=== PATIENT | male | born 1975 | race Caucasian/White ===

== ENCOUNTER 2017-11-27 11:05 | Inpatient (IN) | payer OTHER ==
--- NOTE | 2017-11-27 12:32 | SOAPPROG ---
SOAP Progress Note Assessment/Plan: Assessment: Bipolar disorder, current depression. Slight improvement noted (see subjective/ objective note). Patient is not safe to discharge at this time as patient exhibits signs of mood instability; currently depressed. Patient requires continued inpatient care because of current mood instability, and requires inpatient level of care to stabilize in order to no longer gravely disabled due to mental illness. Patient could benefit from continued inpatient hospitalization for crisis stabilization, safety, and medication evaluation. Plan: Review psychotropic medication treatment informed consent and recommendations. After reviewing options, risk and benefits, patient agrees to continue current medications with the following changes: Depakote ER 1,000 mg po QHS, Albuterol Inhaler. No other medication changes at this time as more time is needed to determine ongoing tolerability and efficacy. Plan is to continue to observe patient for response and side effects from medications, and ongoing monitoring and evaluation. Next steps are for patient to meet with dog day care attendant to plan a safe discharge plan and establish outpatient services for ongoing treatment. Consider discharge next week if patient is in stable condition, safe, and has a safe discharge plan. PSYCHOTROPIC MEDICATION TREATMENT INFORMED CONSENT and RECOMMENDATIONS: Review nature of condition, diagnosis, and prognosis. Review nature and purpose of psychotropic medication treatment. Review type of psychotropic medications being ordered. Review risk and benefits of psychotropic medication treatment. Review probable length of time patient will need to take medications. Review risk and benefits of not undergoing psychotropic medication treatment. Review alternative treatments to psychotropic medications. Review psychotropic medications contraindications, drug-drug interactions, side effects, and importance of reporting any side effects to a psychiatric provider or nurse during inpatient hospitalization, and upon discharge to patients psychiatric outpatient provider, primary care provider, or other health career consultant. Review importance of asking a nurse, psychiatric provider, or primary care provider any questions or problems concerning the psychotropic medications. Verify patient understands the information that has been provided, and understands, accepts, and agrees to psychotropic medications. Review patients safety plan and importance of patient to report to staff while hospitalized if patient is ever a danger to self/others, or unable to care for self, and upon discharge, the importance for patient to contact [facility] or [facility], or go to the nearest emergency room, if patient is ever a danger to self/others, or unable to care for self. Recommend that upon discharge patient establish medication management treatment with a psychiatric provider, establishes routine therapy appointments, and follow-up with primary care provider. Verify patient understands and agrees to these recommendations. 11/27/17 12:32 Subjective: Following up with patient for evaluation of psychosis and safety. Patient reports, "Feeling better today, I had walking pneumonia. Would like to get back to [place], [place]." Patient expresses the following psychiatric symptoms: none. Patient reports taking medications as prescribed, and describes response to medications as okay. Patient does not report undesirable side effects from the medications. Patient reports appetite as good, and reports eating all meals. Patient describes getting 8 hours of sleep. Patient requests Depakote for seizure disorder, and agrees to Depakote ER 1,000 mg po QHS. Patient agrees Depakote may also be beneficial for his mood. Patient requests inhaler for asthma. Objective: NURSING REPORT: Consulted with nursing for update on patients progress in treatment. Nurses report patient is engaged in treatment, is attending groups, slept 8 hours, expresses the following psychiatric symptoms: none, exhibits the following psychiatric symptoms: depressed; is eating all meals, is taking medications as prescribed with no report of side effects, with no s/s of EPS/ akathisia, and denies SI/HI, A/V hallucinations. The patient is male looking older than chronological age. Attire is appropriate and dress is casual. Grooming status is inappropriate and disheveled. Ambulation is independent. Gait is normal and coordinated. Posture is normal and relaxed. Eye contact is appropriate. Motor activity is appropriate with purposeful, organized, coordinated movements; with no involuntary movements. Attitude is cooperative. Patient appears more attentive today and relates well to this interviewer. Language production is spontaneous. Rate is hesitant. Latency of response is prolonged, with sad tone , and low volume. Articulation is mumbled. Patient reports mood as okay with constricted, flat, incongruent affect. Patients thought process is more linear and logical compared to last few days. Associations are connected. Patient does not report suicidal/homicidal thoughts, ideas, or plans. Patient denies auditory, visual hallucinations. Patient denies delusions. Patient does not appear to be attending to internal stimuli. Patients attention and concentration are poor. Patients insight is fair. Patients judgment is fair. Patient is oriented to person, place, time. - Time Spent With Patient Time Spent With Patient: 30 minutes, met with patient individually. - Pending Discharge Pending Discharge Within 24 Hours: No Pending Discharge Within 48 Hours: No ICD10 Worksheet Patient Problems: Problems Problem Status Onset Pneumonia Acute Chronic obstructive pulmonary disease with acute exacerbation Acute PTSD (post-traumatic stress disorder) Acute Bipolar disorder with severe depression Acute Altered mental status Acute
[2017-11-27] MEDS ORDERED: MAGNESIUM HYDROXIDE 30 ML UDCUP PO PRN (12:34)
[2017-11-27] MEDS ORDERED: MAG HYDROX/AL HYDROX/SIMETH 30 ML UDCUP PO PRN (12:34)
[2017-11-27] MEDS ORDERED: NICOTINE POLACRILEX 2 MG GUM B PRN (12:34)
[2017-11-27] MEDS ORDERED: predniSONE 20 MG TAB PO SCH (13:15)
[2017-11-27] MEDS: ALBUTEROL 60 PUFFS/8 GM MDI IH PRN ×2 (16:14→23:18)
[2017-11-27] MEDS: LURASIDONE HCL 20 MG TAB PO SCH (17:10)
[2017-11-27] MEDS: ACETAMINOPHEN 325 MG TAB PO PRN (18:40)
[2017-11-27] MEDS: AMOXICILLIN/CLAVULANATE POT 875/125 MG TAB PO SCH (21:23)
[2017-11-27] MEDS: DIVALPROEX ER 500 MG TAB PO SCH (21:24)
[2017-11-28] MEDS: IBUPROFEN 200 MG TAB PO PRN ×2 (01:00→23:15)
[2017-11-28] MEDS: ALBUTEROL 60 PUFFS/8 GM MDI IH PRN ×5 (05:30→22:02)
[2017-11-28] MEDS: ACETAMINOPHEN 325 MG TAB PO PRN ×2 (06:16→13:44)
[2017-11-28] MEDS: AMOXICILLIN/CLAVULANATE POT 875/125 MG TAB PO SCH ×2 (08:17→19:07)
[2017-11-28] MEDS: predniSONE 20 MG TAB PO SCH (08:17)
--- NOTE | 2017-11-28 08:17 | SOAPPROG ---
SOAP Progress Note Assessment/Plan: Assessment: Bipolar disorder, current depression. Slight improvement noted (see subjective/ objective note). Patient is not safe to discharge at this time as patient exhibits signs of mood instability; currently depressed. Patient requires continued inpatient care because of current mood instability, and requires inpatient level of care to stabilize in order to no longer gravely disabled due to mental illness. Patient could benefit from continued inpatient hospitalization for crisis stabilization, safety, and medication evaluation. Plan: Review psychotropic medication treatment informed consent and recommendations. After reviewing options, risk and benefits, patient agrees to continue current medications. No medication changes at this time as more time is needed to determine ongoing tolerability and efficacy. Plan is to continue to observe patient for response and side effects from medications, and ongoing monitoring and evaluation. Next steps are for patient to meet with home health care social worker to plan a safe discharge plan and establish outpatient services for ongoing treatment. Consider discharge if patient is in stable condition, safe, and has a safe discharge plan. PSYCHOTROPIC MEDICATION TREATMENT INFORMED CONSENT and RECOMMENDATIONS: Review nature of condition, diagnosis, and prognosis. Review nature and purpose of psychotropic medication treatment. Review type of psychotropic medications being ordered. Review risk and benefits of psychotropic medication treatment. Review probable length of time patient will need to take medications. Review risk and benefits of not undergoing psychotropic medication treatment. Review alternative treatments to psychotropic medications. Review psychotropic medications contraindications, drug-drug interactions, side effects, and importance of reporting any side effects to a psychiatric provider or nurse during inpatient hospitalization, and upon discharge to patients psychiatric outpatient provider, primary care provider, or other health healthcare corporate account director. Review importance of asking a nurse, psychiatric provider, or primary care provider any questions or problems concerning the psychotropic medications. Verify patient understands the information that has been provided, and understands, accepts, and agrees to psychotropic medications. Review patients safety plan and importance of patient to report to staff while hospitalized if patient is ever a danger to self/others, or unable to care for self, and upon discharge, the importance for patient to contact [facility] or [facility], or go to the nearest emergency room, if patient is ever a danger to self/others, or unable to care for self. Recommend that upon discharge patient establish medication management treatment with a psychiatric provider, establishes routine therapy appointments, and follow-up with primary care provider. Verify patient understands and agrees to these recommendations. 11/28/17 08:16 Subjective: Following up with patient for evaluation of psychosis and safety. Patient reports, "Continue to feel better, and still planning on getting back to [place], [place]." Patient expresses the following psychiatric symptoms: none. Patient reports taking medications as prescribed, and describes response to medications as okay. Patient does not report undesirable side effects from the medications. Patient reports appetite as good, and reports eating all meals. Patient describes getting 8 hours of sleep. Patient requests to continue current medications and requests resources for travel back to [place], [place]. Patient states his mother lives in the [place] area and he plans to return to visit her, and states he was visiting [place] from [place], [place]. Objective: Vital Signs Temp Pulse Resp BP Pulse Ox 36.3 C 76 16 105/57 L 95 11/28/17 00:00 11/28/17 05:32 11/28/17 05:32 11/28/17 05:32 11/28/17 05:32 NURSING REPORT: Consulted with nursing for update on patients progress in treatment. Nurses report patient is engaged in treatment, is attending groups, slept 8 hours, expresses the following psychiatric symptoms: none, exhibits the following psychiatric symptoms: depression; is eating all meals, is taking medications as prescribed with no report of side effects, with no s/s of EPS/ akathisia, and denies SI/HI, A/V hallucinations. The patient is male looking older than chronological age. Attire is appropriate and dress is casual. Grooming status is appropriate, clean shaven. Ambulation is independent. Gait is normal and coordinated. Posture is normal and relaxed. Eye contact is appropriate. Motor activity is appropriate with purposeful, organized, coordinated movements; with no involuntary movements. Attitude is cooperative. Patient appears attentive today and relates well to this interviewer. Speech R/R/V normal. Articulation is clear. Patient reports mood as okay with flat affect. Patients thought process is linear and logical. Associations are connected. Patient does not report suicidal/homicidal thoughts, ideas, or plans. Patient denies auditory, visual hallucinations. Patient denies delusions. Patient does not appear to be attending to internal stimuli. Patients attention and concentration are poor. Patients insight is fair. Patients judgment is fair. Patient is oriented to person, place, time, and situation. - Time Spent With Patient Time Spent With Patient: 15 minutes, met with patient individually. - Pending Discharge Pending Discharge Within 24 Hours: No Pending Discharge Within 48 Hours: No ICD10 Worksheet Patient Problems: Problems Problem Status Onset Altered mental status Acute Bipolar disorder with severe depression Acute Chronic obstructive pulmonary disease with acute exacerbation Acute PTSD (post-traumatic stress disorder) Acute Pneumonia Acute
--- NOTE | 2017-11-28 11:45 | ASMTBHMTP ---
Master Treatment Plan Master Treatment Plan Answers: Impaired Reality for: Date: 11/27/2017 Diagnosis on Admission: BiPolar Disorder with Severe Depression Expected length of stay: 3-5 days Reason for admission: Notes: Client was transfered back to from ICU, was on unit before see report Patient's stated presenting problems: Notes: "I doing ok, I took a shower" Patient's goals for treatment: Notes: "to get back on my medications and get better." Patient's strengths: Notes: none really Identify supports outside of hospital: Notes: noneq Discharge criteria: Notes: Psychotic symptoms will be reduced or eliminated with return to baseline functioning in affect, thinking and behavior prior to discharge.* Initial disposition plan/considerations: Notes: Go back to [place], and take better care of myself.* Master Treatment Plan Required Signatures Psychiatrist signature: Answers: Psychiatrist: RN on-shift signature: Answers: RN: Patient signature: Answers: Patient: Date Signed: 11/28/2017 11:45 AM Electronically Signed By:Aron Carrera
--- NOTE | 2017-11-28 16:05 | BAPA ---
[f rep st] ADMISSION PSYCHIATRIC ASSESSMENT DATE OF SERVICE: 11/27/2017 CC: "Feeling better after being at other hospital; had walking pneumonia." HISTORY OF PRESENT STAY: Patient re-admitted after a short stay at [facility] for medical treatment. The patient was discharged from inpatient [facility] on 11/26/2017, and was sent to the [facility] Emergency Room and was admitted. From Dr. Philip's progress note dated 11/25/2017, the patient had significant bilateral pedal edema. Dr. Philip requested a hospitalist to evaluate. The patient was seen for history and physical on 11/26/2017. The patient was sent from [address] [place] [address] to [facility] due to shortness of breath. Was sent to the ER by the [facility] team. At the ER, was found to have right-sided pneumonia and COPD exacerbation. The patient was admitted and started on IV antibiotics, IV fluids, and steroids. CXR showed a RML and RLL pneumonia. The patient was hypotensive and tachypnea when presented on admission at [facility]. Lactic acid was unremarkable. No leukocytosis. The patient reported shortness of breath since the morning of 11/26/2017. The patient reported feeling better since arriving to the ER. Antibiotic steroids started in the ER. No fluids provided. The patient was discharged from the ICU. The patient was on room air at time of discharge, reported feeling better. He was transitioned to Augmentin 875 mg b.i.d. x7 days and prednisone 40 mg daily x5 days. The patient received an echocardiogram which was unremarkable. The patient was discharged and sent back to [address] [place] [address] for continued inpatient psychiatric treatment. For previous History of Present Illness, please refer to the initial psychiatric assessment and history from 11/22/2017, and SOAP Progress notes as history was gathered from patient during previous stay, prior to being transferred to [facility]. PAST PSYCHIATRIC HISTORY: Refer to the initial psychiatric assessment and history from 11/22/2017, and SOAP Progress notes as history was gathered from patient during previous stay, prior to being transferred to [facility]. ALLERGIES: Refer to the initial psychiatric assessment and history from 2017, and SOAP Progress notes as history was gathered from patient during previous stay, prior to being transferred to [facility]. CURRENT MEDICATIONS: Albuterol 2 puffs IH q.4 hours p.r.n., Augmentin 875 mg p.o. b.i.d., Depakote ER 1000 mg p.o. h.s., Latuda 20 mg p.o. daily at 6 p.m, prednisone 40 mg p.o. daily. PAST MEDICAL HISTORY: Refer to the initial psychiatric assessment and history from 11/22/2017, and SOAP Progress notes as history was gathered from patient during previous stay, prior to being transferred to [facility]. SOCIAL HISTORY: Refer to the initial psychiatric assessment and history from , and SOAP Progress notes as history was gathered from patient during previous stay, prior to being transferred to [facility]. SUBSTANCE USE: Refer to the initial psychiatric assessment and history from , and SOAP Progress notes as history was gathered from patient during previous stay, prior to being transferred to [facility]. FAMILY PSYCHIATRIC HISTORY: Refer to the initial psychiatric assessment and history from 11/22/2017, and SOAP Progress notes as history was gathered from patient during previous stay, prior to being transferred to [facility]. ADMISSION LABS AND STUDIES: Refer to the initial psychiatric assessment and history from 11/22/2017, and SOAP Progress notes as history was gathered from patient during previous stay, prior to being transferred to [facility]. MENTAL STATUS EXAM: The patient is an undernourished male, looking older than chronological age. Attire is appropriate. Dress is casual, neat and clean. Grooming status is appropriate. Ambulation is independent. Gait is normal and coordinated. Posture is normal and relaxed. Eye contact is appropriate. Motor activity is appropriate with purposeful, organized, coordinated movements with no involuntary movements noted. Attitude is cooperative and friendly. The patient appears attentive and relates well to this interviewer. Language production is spontaneous. Rate, rhythm and volume are normal. Patient reports mood as "good." Affect is congruent with mood. The patient's thought process is linear and logical with no loose associations, tangential thought, thought blocking, concrete thinking, or any other signs of formal thought disorder. The patient does not report suicidal, homicidal thoughts, ideas, or plans. The patient denies auditory, visual hallucinations. The patient denies delusions. The patient does not appear to be attending to internal stimuli. The patient is oriented x3. The patient's attention and concentration are adequate. The patient's insight and judgment are fair. There is no evidence of gross cognitive dysfunction at any point during the interview and no evidence of apparent dysfunction in recent or remote memory noted. The patient does not report undesirable side effects from the medications. DIAGNOSIS: Bipolar 2 disorder, most recent episode depression. FORMULATION: This is a 42-year-old male single, unemployed, currently living homeless in [place], who presents to the hospital on a short-term certification after a short stay at [facility]. The patient requires continued inpatient care because of current mood instability and recent crisis that led to this hospitalization. The patient presents with problems of mood instability that have been steadily increasing over the past several weeks. The patient's life has been affected by these problems including a crisis that led to this hospitalization. The exacerbation of symptoms was preceded by the patient not eating or drinking for several days and that episode may likely be due to an underlying medical cause that led to the patient's admission at [facility] from [address]. The patient has a past psychiatric history of bipolar 2 disorder with depression. Based on the patient's history and current presentation, his diagnosis is bipolar II disorder with depression. The patient is a [id number] safety risk due to current mood instability. Protective factors while hospitalized include ongoing safety checks, active involvement in treatment, and support from our treatment team. The patient could benefit from inpatient hospitalization for safety, crisis stabilization, and medication evaluation. PLAN: (1) After reviewing risks and benefits and options, the patient agrees to continue current medications. (2) Labs: No additional labs at this time. (3) Therapy: milieu and group (4) Further investigation including gathering information from patients relatives and review of past case records (5) Continued evaluation and monitoring will be ongoing during the course of patients inpatient hospitalization to inform treatment, to determine if adjustments in medication regimen may benefit patients symptoms, and for discharge planning (6) Safety plan and follow-up outpatient appointments to be established prior to discharge (7) Confer with inpatient treatment team regarding initial treatment plan (8) Review informed consent and recommendations for psychotropic medication treatment listed below now, during the course of hospitalization, and during discharge interview ESTIMATED LENGTH OF STAY: 1-3 days PSYCHOTROPIC MEDICATION TREATMENT INFORMED CONSENT and RECOMMENDATIONS: Review nature of condition, diagnosis, and prognosis. Review nature and purpose of psychotropic medication treatment. Review type of psychotropic medications being ordered. Review risk and benefits of psychotropic medication treatment. Review probable length of time will need to take medications. Review risk and benefits of not undergoing psychotropic medication treatment. Review alternative treatments to psychotropic medications. Review psychotropic medications contraindications, drug-drug interactions, side effects, and importance of reporting any side effects to a psychiatric provider or nurse during inpatient hospitalization, and upon discharge to patients psychiatric outpatient provider, primary care provider, or other health career based intervention coordinator. Review importance of asking a nurse, psychiatric provider, or primary care provider any questions or problems concerning the psychotropic medications. Verify patient understands the information that has been provided, and understands, accepts, and agrees to psychotropic medications. Review patients safety plan and importance of patient to communicate to staff while hospitalized if patient is ever a danger to self/others, or unable to care for self, and upon discharge, the importance for patient to contact [facility] or [facility], or go to the nearest emergency room, if patient is ever a danger to self/others, or unable to care for self. Recommend that upon discharge patient establish medication management treatment with a psychiatric provider, establishes routine therapy appointments, and follow-up with primary care provider. Verify patient understands and agrees to these recommendations. /[id number]/MODL [id number]
[2017-11-28] MEDS: LURASIDONE HCL 20 MG TAB PO SCH (17:45)
[2017-11-28] MEDS: DIVALPROEX ER 500 MG TAB PO SCH (19:06)
[2017-11-29] MEDS: ALBUTEROL 60 PUFFS/8 GM MDI IH PRN ×2 (04:29→08:10)
[2017-11-29] MEDS: ACETAMINOPHEN 325 MG TAB PO PRN ×2 (04:30→10:54)
--- NOTE | 2017-11-29 07:59 | SOAPPROG ---
SOAP Progress Note Assessment/Plan: Assessment: Bipolar disorder, most recent depressed. Improvement noted (see subjective/ objective note). Patient is stable, ready to discharge when safe plan is in place. Plan: Review psychotropic medication treatment informed consent and recommendations. After reviewing options, risk and benefits, patient agrees to continue current medications. No medication changes at this time as more time is needed to determine ongoing tolerability and efficacy. Plan is to continue to observe patient for response and side effects from medications, and ongoing monitoring and evaluation. Next steps are for patient to meet with acute care physical therapist to plan a safe discharge plan and establish outpatient services for ongoing treatment. Consider discharge Monday or if patient is in stable condition, safe , and has a safe discharge plan. PSYCHOTROPIC MEDICATION TREATMENT INFORMED CONSENT and RECOMMENDATIONS: Review nature of condition, diagnosis, and prognosis. Review nature and purpose of psychotropic medication treatment. Review type of psychotropic medications being ordered. Review risk and benefits of psychotropic medication treatment. Review probable length of time patient will need to take medications. Review risk and benefits of not undergoing psychotropic medication treatment. Review alternative treatments to psychotropic medications. Review psychotropic medications contraindications, drug-drug interactions, side effects, and importance of reporting any side effects to a psychiatric provider or nurse during inpatient hospitalization, and upon discharge to patients psychiatric outpatient provider, primary care provider, or other health career guidance technician. Review importance of asking a nurse, psychiatric provider, or primary care provider any questions or problems concerning the psychotropic medications. Verify patient understands the information that has been provided, and understands, accepts, and agrees to psychotropic medications. Review patients safety plan and importance of patient to report to staff while hospitalized if patient is ever a danger to self/others, or unable to care for self, and upon discharge, the importance for patient to contact [place] [facility] or [facility], or go to the nearest emergency room, if patient is ever a danger to self/others, or unable to care for self. Recommend that upon discharge patient establish medication management treatment with a psychiatric provider, establishes routine therapy appointments, and follow-up with primary care provider. Verify patient understands and agrees to these recommendations. 11/29/17 07:59 Subjective: Following up with patient for evaluation of psychosis and safety. Patient reports, "Would like to discharge today as I have a lot of business to take care of, and plan to return to [place], [place]." Patient expresses the following psychiatric symptoms: none. Patient reports taking medications as prescribed, and describes response to medications as okay. Patient does not report undesirable side effects from the medications. Patient reports appetite as good , and reports eating all meals. Patient describes getting 8 hours of sleep. Patient requests to continue current medications and requests resources for travel back to [place], [place]. Objective: Vital Signs Temp Pulse Resp BP Pulse Ox 36.3 C 86 16 95/51 L 94 11/29/17 00:30 11/29/17 00:30 11/29/17 00:30 11/29/17 00:30 11/29/17 00:30 NURSING REPORT: Consulted with nursing for update on patients progress in treatment. Nurses report patient is engaged in treatment, is attending groups, slept 8 hours, expresses the following psychiatric symptoms: none, exhibits the following psychiatric symptoms: depression; is eating all meals, is taking medications as prescribed with no report of side effects, with no s/s of EPS/ akathisia, and denies SI/HI, A/V hallucinations. The patient presents casually dressed and with good hygiene, and looks stated age. Patient is sitting, posture is upright, and position is relaxed. Patient appears awake, alert, and responds appropriately and reasonably during interview. Patient is engaged, relates well to interviewer, and emotional facial expression is appropriate to situation and changes appropriately with topic. Patient is cooperative, makes comfortable eye contact, and movements are voluntary, deliberate, coordinated, and smooth and even with no inappropriate movements. Patient makes laryngeal sounds effortlessly and shares conversation appropriately; pace of conversation is appropriate, and stream of talking is fluent; articulation is clear and understandable; word choice is effortless and appropriate for education level; completes sentences, occasionally pausing to think; rate and volume are appropriate for interview and setting. Patient reports mood as euthymic. Patients affect is stable with full variable range, congruent with mood, and appropriate to speech and circumstances. Patient has linear and logical thinking, with no loose associations, tangential thought, thought blocking, concrete thinking, or any other signs of formal thought disorder. Patient denies suicidal and homicidal ideation, and denies hallucinations and delusions. Patient appears to be a reliable historian with sound judgement and good insight into current condition. Patient has no apparent dysfunction in recent or remote memory noted , and no evidence of gross cognitive dysfunction noted at any point during the interview. - Time Spent With Patient Time Spent With Patient: 15 minutes, met with patient individually. - Pending Discharge Pending Discharge Within 24 Hours: Yes Pending Discharge Within 48 Hours: No Pending Discharge Date: 11/30/17 Pending Discharge Time: 11:00 ICD10 Worksheet Patient Problems: Problems Problem Status Onset Altered mental status Acute Bipolar disorder with severe depression Acute Chronic obstructive pulmonary disease with acute exacerbation Acute PTSD (post-traumatic stress disorder) Acute Pneumonia Acute
[2017-11-29] MEDS: predniSONE 20 MG TAB PO SCH (08:00)
[2017-11-29] MEDS: AMOXICILLIN/CLAVULANATE POT 875/125 MG TAB PO SCH (08:01)
--- NOTE | 2017-11-29 08:59 | ASMTBHDC ---
Notes Note: Notes: CC confirmed with client and provider that he will be leaving today. CC called [facility] in [place] and provided all walk-in time/dates for client and contact information as well as provide the address to the local [facility]. See below: [facility] [address], [place] [address] Walk in Appts (time/date) Tuesdays & 9am thur 12pm & 1pm thru 4pm* Need to bring current list of medications Insurance information/card ID if you have it, Social Security Card (if you have it) Any medical records If you need this clinic to conncet with [facility], have then call or [facility] [address] [place] [address] Date Signed: 11/29/2017 08:58 AM Electronically Signed By:Aron Carrera
--- NOTE | 2017-11-29 10:09 | BDS ---
[f rep st] BEHAVIORAL HEALTH DISCHARGE SUMMARY REASON FOR ADMISSION: From the psychiatric assessment and history dated 2017. HISTORY OF PRESENT ILLNESS: From the ED note dated 11/20/2017, the patient arrived at the ED via [facility] on an M1 hold for grave disability. The patient was restless, pacing around in the room, and was nonverbal. The ED provider at that time was unable to obtain any history from the patient. From the [facility] evaluation dated 11/21/2017, the patient was placed on an M1 hold for grave disability. The patient was brought to the [facility] ED with unknown past psychiatric history from the [facility] on an M1 hold. The M1 hold stated the patient had not been sleeping, eating or drinking since his arrest on 11/18/2017. The patient was unresponsive to attempts to screen while at the skilled nursing. The patient was unable to communicate verbally and shouting and banging in his cell. The patient refused to wear clothing and was unable to test reality. The patient was admitted involuntarily on an M1 hold due to being gravely disabled. The patient was admitted for safety, crisis stabilization, and medication evaluation. ADMITTING DIAGNOSIS: Unspecified psychosis. ADMISSION PHYSICAL EXAM: Patient was seen for a physical exam on 11/22/2017, by Dr. Alfaro. Reason for referral for Internal Medical Medicine consultation was medical clearance for inpatient Behavioral Health stay. Dr. Alfaro reported he saw no medical contraindications to the patient's continued stay in the inpatient behavioral health unit or to any psychiatric medications or procedures. For further details, please refer to Dr. Alfaro's note dated 2017. ADMISSION LABS: CBC from 11/20 showed anemia with a hemoglobin of 12.4 and hematocrit of 38.8. Mean cellular hemoglobin content was low at 32, and red blood cell distribution width was high at 15.3. Otherwise, it was overall within normal limits. Serum chemistry was consistent with dehydration on 11/20 with a sodium of 148, a BUN of 28 and creatinine of 0.9. The patient had an elevated chloride at 112 and then 111 on 11/21. The patient's BUN decreased somewhat from 28 to 25 between 2 days ago and yesterday. Creatinine was normal at 0.9 and then 0.7. Hemoglobin A1c was 5.5. Liver functions revealed a low albumin at 2.9, otherwise were within normal limits. Vitamin B12 was normal at 492, and TSH was normal at 1.030. Urinalysis was positive for protein and ketones. Toxicology screen in the serum was negative for salicylates, acetaminophen, lithium, and ethyl alcohol, and in the urine was negative for any substances of abuse. MAJOR PROCEDURES OR TESTS: The patient was sent to [facility] on 11/26/[address] Philip's progress note dated 11/25/2017. The patient had significant bilateral pedal edema. Dr. Philip requested the hospitalist to evaluate. The patient was sent from [address] [place] [address] to [facility] due to shortness of breath on . At the ER, was found to have right-sided pneumonia and COPD exacerbation. The patient was admitted and started on IV antibiotics, IV fluids , and steroids. CXR showed an RML and RLL pneumonia. The patient was hypotensive and tachypneic when presented on admission at [facility]. Lactic acid was unremarkable. No leukocytosis. The patient reported shortness of breath since the morning of 11/26/2017. The patient reported feeling better since arriving to the ER. Antibiotic steroid started in the ER. No fluids provided. The patient was discharged from the ICU. The patient was on room air at the time of discharge, reported feeling better. He was transitioned to Augmentin 875 b.i.d. x7 days and prednisone 40 mg daily x5 days. The patient received an echocardiogram, which was unremarkable. The patient was discharged and sent back to [address] [place] [address] for continued inpatient psychiatric treatment. HOSPITAL COURSE: The most prominent symptoms and behaviors while the patient was here were disorganized thought process and disorganized behavior. Target symptoms: Psychosis and depression. Treatment modalities utilized were milieu and group therapy. Latuda 20 mg p.o. daily at 1800 was started to target depression symptoms, was tolerated with no report of side effects and with good response. Depakote ER 1000 mg p.o. q.h.s. was started to target mood symptoms and seizures, was tolerated with no report of side effects and with good response. The patient has improved considerably, with no signs of psychiatric symptoms and no psychiatric symptoms expressed at discharge. The patient reports he has improved since admission, states to be in stable condition, feels safe to discharge, and he contracts for safety. Patient's response to treatment was good. There were no adverse or unexpected results of treatment. The patient was safe throughout his stay, active in treatment, engaged in groups , and was appropriate with staff and other patients. The treatment team consensus is the patient is in stable condition and is safe to discharge today. CONDITION ON DISCHARGE: Patient is in stable condition and is no longer a danger to self or others, and is not gravely disabled due to mental illness. Patient is no longer in need of inpatient level of care, and can be safely and effectively treated within the community. The patients level of risk at time of discharge is low based on the risk assessment below following this discharge summary. MSE: The patient is casually dressed and with good hygiene, and looks stated age. Patient is sitting, posture is upright, and position is relaxed. Patient appears awake, alert, and responds appropriately and reasonably during interview. Patient is engaged, relates well to interviewer, and emotional facial expression is appropriate to situation and changes appropriately with topic. Patient is cooperative, makes comfortable eye contact, and movements are voluntary, deliberate, coordinated, and smooth and even with no inappropriate movements. Patient makes laryngeal sounds effortlessly and shares conversation appropriately; pace of conversation is appropriate, and stream of talking is fluent; articulation is clear and understandable; word choice is effortless and appropriate for education level; completes sentences, occasionally pausing to think; rate and volume are appropriate for interview and setting. Patient reports mood as euthymic. Patients affect is stable with full variable range, congruent with mood, and appropriate to speech and circumstances. Patient has linear and logical thinking, with no loose associations, tangential thought, thought blocking, concrete thinking, or any other signs of formal thought disorder. Patient denies suicidal and homicidal ideation, and denies hallucinations and delusions. Patient appears to be a reliable historian with sound judgement and good insight into current condition. Patient has no apparent dysfunction in recent or remote memory noted , and no evidence of gross cognitive dysfunction noted at any point during the interview. 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 daily for 3 days, Latuda 20 mg p.o. daily at 1800, Depakote ER 1000 mg p.o. q.h.s., Augmentin 875 mg p.o. b.i.d. for 5 days, albuterol 2 puffs inhale q.4 hours. Prescriptions were provided at the time of discharge. Prescriptions were reviewed carefully with the patient for accuracy and clarification. The patient reports he understands the prescriptions and how to appropriately take the medications. DISPOSITION: Patient left the hospital today independently and voluntarily and plans to return to [place], [place], where his family resides. FOLLOWUP: financial aid coordinator reports the appropriate outpatient follow-up services have been established and outpatient appointments have been scheduled. The patient received written instructions with times and dates of outpatient follow-up appointments. The following follow-up recommendations were provided to the patient at discharge: Continue psychotropic medications as prescribed and attend appointments as scheduled. Report any side effects to a psychiatric outpatient provider, a primary care provider, or other health vision care associate. Address any questions or problems concerning the psychotropic medications with a psychiatric outpatient provider, a primary care provider, or other health vision care associate. Contact [facility] or [facility], or go to the nearest emergency room, if you are ever a danger to yourself/others, or unable to care for yourself. As soon as possible, establish a routine medication management treatment with a psychiatric provider, establish routine therapy appointments, and follow-up with a primary care provider. LEGAL COURSE: The patient was admitted on an M1 hold for grave disability. The patient was placed on a short-term certification during hospitalization, was terminated today. Patient discharged today independently and voluntarily. ATTITUDE AT TIME OF DISCHARGE: The patients attitude was positive at time of discharge, and patient reports looking forward to discharging today. The patient reports he feels safe to discharge, is no longer a danger to himself or others, is in stable condition, and contracts for safety. Patient states he will continue medications as prescribed, and establish medication management treatment with an outpatient provider after discharge. Patient reports he understands the information that has been provided to him, and he understands, accepts, and agrees to psychotropic medications. Patient describes internal protective factors as the coping skills he has learned while hospitalized here, and he plans to continue to practice these coping skills after discharge. Patient reports external protective factors as family and future plans. Patient describes looking forward to returning to [place], [place] after discharge. Patient describes future plans as find employment in [place], [place]. Patient reports he has completed Wellness Plan and has reviewed Wellness Plan with his nurse. LABS AND STUDIES: There were no pending labs or studies at time of discharge. ADVANCE DIRECTIVES: There were no advance directives on file, and patient was full code during hospitalization. The following psychotropic medication treatment informed consent and recommendations were provided to the patient at time of discharge. Patient reports he understands, accepts, and agrees to the information that has been provided. PSYCHOTROPIC MEDICATION TREATMENT INFORMED CONSENT and RECOMMENDATIONS: Review nature of condition, diagnosis, and prognosis. Review nature and purpose of psychotropic medication treatment. Review type of psychotropic medications being prescribed. Review risk and benefits of psychotropic medication treatment. Review probable length of time will need to take medications. Review risk and benefits of not undergoing psychotropic medication treatment. Review alternative treatments to psychotropic medications. Review psychotropic medications contraindications, side effects, and importance of reporting any side effects to a psychiatric provider, primary care provider, or other health vision care associate. Review importance of her asking a psychiatric provider or primary care provider any questions or problems concerning the psychotropic medications. Review safety plan and the importance to contact [facility] or [facility] , or go to the nearest emergency room, if ever a danger to yourself/others, or unable to care for yourself. Recommend upon discharge to establish routine medication management treatment with a psychiatric provider, establish routine therapy appointments, and follow-up with a primary care provider. Verify patient understands, accepts, and agrees to the information that has been provided. /[id number]/MODL MTDD
[2017-11-29 10:27] VITALS: BP 110/55
== END 2017-11-29 11:20 | disposition home or self-care (01) | DRG 885 ==
LOC: BBEH 11:05
PROVIDERS: ADMIT Psychiatry & Neurology Psychiatry; ATTEND Psychiatry & Neurology Psychiatry
DX: F31.81 Bipolar II disorder (principal); Z59.0 Homelessness
CPT/HCPCS: J7512